=== PATIENT | female | born 1965 | race Two or more races ===

== ENCOUNTER 2022-03-11 10:27 | Inpatient (IN) | payer MEDICARE, OTHER ==
[~2022-03-11] VITALS: Ht 162.6 cm; Wt 94.3 kg
[2022-03-11] MEDS ORDERED: CALC1TAB30 PO (10:54)
[2022-03-11] MEDS ORDERED: ASCO-352 PO (10:54)
[2022-03-11] MEDS ORDERED: APIX5TAB PO (10:54)
[2022-03-11] MEDS ORDERED: ESZO3TAB27 PO (10:54)
[2022-03-11] MEDS ORDERED: EZET10TA16 PO (10:54)
[2022-03-11] MEDS ORDERED: POTA10TA10 PO (10:54)
[2022-03-11] MEDS ORDERED: ATOR40TA PO (10:54)
[2022-03-11] MEDS ORDERED: ESCI5TAB PO (10:54)
[2022-03-11] MEDS ORDERED: OMEG-167 PO (10:54)
[2022-03-11] MEDS ORDERED: POLY17PO4 PO (10:54)
[2022-03-11] MEDS ORDERED: LOSA1TAB36 PO (10:54)
[2022-03-11] MEDS ORDERED: FURO-144 PO (10:54)
[2022-03-11] MEDS ORDERED: AMLO2.5T4 PO (10:54)
[2022-03-11] MEDS ORDERED: OLAN20TA3 PO (10:54)
--- NOTE | 2022-03-11 10:54 | NUR ---
[facility] regular ambulance to ER- on 5149 - needing medical clearance priot to [facility] admission - assigned room 219.1
[2022-03-11] MEDS ORDERED: LEVO75TA7 PO (10:58)
--- NOTE | 2022-03-11 11:01 | NUR ---
AWAKE AND ALERT DINESES SI OR HI ON 5150 FOR GRAVELY DISABLED PT FALLOW COMMAND
[2022-03-11 11:05] LABS: BASOPHILS # (AUTO) 0.1 K/uL (0.0-0.2); BASOPHILS % (AUTO) 0.7 % (0.0-2.0); EOSINOPHILS % (AUTO) 1.7 % (0.0-6.0); HEMATOCRIT 42 % (33-45); HEMOGLOBIN 13.8 g/dL (11.5-14.8); MEAN CORPUSCULAR HGB CONC 33 g/dl (31.0-36.0); MEAN CORPUSCULAR VOLUME 86 fL (82-100); MONOCYTES # (AUTO) 0.4 K/uL (0.1-1.30); MONOCYTES % (AUTO) 5.2 % (2.0-12.0); NEUTROPHILS # (AUTO) 5.1 K/uL (1.8-8.9); NEUTROPHILS % (AUTO) 58.4 % (43.0-81.0); PLATELET COUNT (AUTO) 301 K/uL (150-450); WHITE BLOOD COUNT (AUTO) 8.7 K/uL (4.3-11.0)
--- NOTE | 2022-03-11 11:05 | NUR ---
COVID SWAB SENDED TO LAB AND MRSA SENDED TO LAB PT VODING BUT UNBLE TO GOT URINE SPASMENT
[2022-03-11 11:25] LABS: CARBON DIOXIDE 29 mmol/L (21-32); CHLORIDE 103 mmol/L (98-107); GLUCOSE 108 mg/dL (74-106); POTASSIUM 3.9 mmol/L (3.5-5.1); SODIUM SERUM 138 mmol/L (136-145); UREA NITROGEN, BLOOD 9 mg/dL (7-18)
[2022-03-11 11:31] LABS: ALANINE AMINOTRANSFERASE 17 U/L (12-78); ALBUMIN 3.3 g/dL (3.4-5.0); ALKALINE PHOSPHATASE 101 U/L (46-116); ASPARTATE AMINOTRANSFERASE 13 U/L (15-37); BILIRUBIN,DIRECT 0.2 mg/dL (0.0-0.2); BILIRUBIN,TOTAL 0.8 mg/dL (0.2-1.0); TOTAL PROTEIN, SERUM 7.9 g/dL (6.4-8.2)
[2022-03-11 11:34] LABS: ACETAMINOPHEN < 10 ug/ml (10-30); ALCOHOL, BLOOD < 3 mg/dL (0-0)
--- NOTE | 2022-03-11 11:45 | NUR ---
LALITO FOR LAB RESULT AND ENRIQUE HERRERA
--- NOTE | 2022-03-11 11:57 | NUR ---
TO ROOM 219 PT ON 5150 HAND OFF TO [place] RN BY ( JANET TRAMMELL ) PT VS STABLE NO PAIN A&A
[2022-03-11 12:00] VITALS: BP 126/76
--- NOTE | 2022-03-11 12:20 | NUR ---
GPS/RN RECEIVED PT FROM [facility]( MEDICALLY CLEARED IN [facility] ER) ORIGINALLY FROM HOME. ON 5150 FOR GD. AMBULATORY WITH WALKER. ON FACE TO FACE ASSESSMENT NO SI OR HI REPORTED. ADMITTING ORDERS FROM DR DIXON RECEIVED AND CARRIED OUT. DR FALL MADE AWARE OF ADMISSION. PROPERTY CHECKED FOR CONTRABAND. REFUSED TO SIGN ADMITTING FORMS.
[2022-03-11] MEDS ORDERED: LORAZEPAM 0.5 MG TABLET PO PRN (12:30)
[2022-03-11] MEDS ORDERED: BLOOD SUGAR DIAGNOSTIC 1 EACH STRIP IN ONE (12:30)
[2022-03-11] MEDS ORDERED: ACETAMINOPHEN 325 MG TABLET PO PRN (12:30)
[2022-03-11] MEDS ORDERED: MAG HYDROX/AL HYDROX/SIMETH 30 ML UDC PO PRN (12:30)
[2022-03-11] MEDS ORDERED: MAGNESIUM HYDROXIDE 30 ML UDC PO PRN (12:30)
[2022-03-11] MEDS ORDERED: ZOLPIDEM TARTRATE 5 MG TABLET PO PRN (12:30)
[2022-03-11 16:00] VITALS: BP 121/77
[2022-03-11 20:03] VITALS: BP 120/60
[2022-03-11] MEDS: APIXABAN 5 MG TABLET PO SCH (20:15)
[2022-03-11 20:27] VITALS: BP 120/60
[2022-03-11] MEDS: ATORVASTATIN 40 MG TABLET PO SCH (21:08)
--- NOTE | 2022-03-12 07:32 | NUR ---
RN NOTE- PT ALERT ORIENTED TO PERSON PLACE, MED COMPLIANT W STABLE VS. PO INTAKE FAIR, DENIES SI HI AH VH. NEEDS ATTENDED, BED LOCKED, FREQUENT CHECKS FOR SAFETY, MONITOR AND ASSIST
[2022-03-12 08:00] VITALS: BP 149/86
[2022-03-12 08:01] LABS: CHOLESTEROL 168 mg/dL (<200); HDL CHOLESTEROL 37 mg/dL (40-60); LDL 111 mg/dL (0-99); TRIGLYCERIDES 107 mg/dL (30-150)
[2022-03-12 08:03] LABS: ALBUMIN 2.8 g/dL (3.4-5.0); BILIRUBIN,TOTAL 0.5 mg/dL (0.2-1.0); CALCIUM, SERUM 9.2 mg/dL (8.5-10.1); CREATININE 0.9 mg/dL (0.6-1.3); POTASSIUM 4.1 mmol/L (3.5-5.1); TOTAL PROTEIN, SERUM 6.9 g/dL (6.4-8.2)
[2022-03-12] MEDS: LEVOTHYROXINE SODIUM 75 MCG TABLET PO SCH (08:26)
[2022-03-12] MEDS: EZETIMIBE 10 MG TABLET PO SCH (08:42)
[2022-03-12] MEDS: CALCIUM CARB 250MG /VITAMIN D 1 UDTAB PO SCH (08:42)
[2022-03-12] MEDS: POTASSIUM CHLORIDE 10 MEQ TABLET.SA PO SCH (08:42)
[2022-03-12] MEDS: ASCORBIC ACID 500 MG TABLET PO SCH (08:42)
[2022-03-12] MEDS: LOSARTAN/HCTZ 50-12.5MG/ 1 EA TABLET PO SCH (08:43)
[2022-03-12] MEDS: FUROSEMIDE 40 MG TABLET PO SCH (08:43)
[2022-03-12] MEDS: AMLODIPINE BESYLATE 2.5 MG TABLET PO SCH ×2 (08:43→16:01)
[2022-03-12] MEDS: APIXABAN 5 MG TABLET PO SCH ×2 (08:46→16:02)
[2022-03-12] MEDS: DIVALPROEX SODIUM 250 MG TABLET.DR PO SCH ×2 (10:27→21:03)
[2022-03-12 16:00] VITALS: BP 138/79
[2022-03-12 20:24] VITALS: BP 132/72
[2022-03-12] MEDS: OLANZAPINE 10 MG TABLET PO SCH (21:03)
[2022-03-12] MEDS: ATORVASTATIN 40 MG TABLET PO SCH (21:03)
[2022-03-13 08:00] VITALS: BP 119/69
[2022-03-13] MEDS: CALCIUM CARB 250MG /VITAMIN D 1 UDTAB PO SCH (08:47)
[2022-03-13] MEDS: POTASSIUM CHLORIDE 10 MEQ TABLET.SA PO SCH (08:47)
[2022-03-13] MEDS: LEVOTHYROXINE SODIUM 75 MCG TABLET PO SCH (08:47)
[2022-03-13] MEDS: DIVALPROEX SODIUM 250 MG TABLET.DR PO SCH ×2 (08:47→20:55)
[2022-03-13] MEDS: EZETIMIBE 10 MG TABLET PO SCH (08:47)
[2022-03-13] MEDS: ASCORBIC ACID 500 MG TABLET PO SCH (08:47)
[2022-03-13] MEDS: FUROSEMIDE 40 MG TABLET PO SCH (08:48)
[2022-03-13] MEDS: ESCITALOPRAM OXALATE (10 MG) 10 MG TABLET PO SCH (08:48)
[2022-03-13] MEDS: LOSARTAN/HCTZ 50-12.5MG/ 1 EA TABLET PO SCH (08:48)
[2022-03-13] MEDS: AMLODIPINE BESYLATE 2.5 MG TABLET PO SCH ×2 (08:51→16:19)
[2022-03-13] MEDS: APIXABAN 5 MG TABLET PO SCH ×2 (09:07→16:19)
[2022-03-13 16:00] VITALS: BP_SYST 110; BP_SYST 116; BP_DIAS 63; BP_DIAS 65
--- NOTE | 2022-03-13 17:46 | NUR ---
RN-NOTES PATIENT LYING IN BED AWAKE,ALERT X2 GUARDED ,NOTED WITH DEPRESSED MOOD ENCOURAGE TO VERBALIZE FEELINGS AND CONCERN TO THE STAFF AND ATTEND GROUPS. PATIENT PREFERS TO STAY IN THE ROOM AND REST.NO ACUTE DISTRESS NOTED. COMPLIANT WITH MEDICATIONS.NEEDS MINIMAL ASSIST WITH ADL'S. AMBULATORY WITH WALKER.ABLE TO MAKE NEEDS KNOWN TO THE STAFF. ALL NEEDS ATTENDED AND ANTICIPATED. WILL CONT. MONITORING FOR SAFETY AND BEHAVIOR.WILL ENDORSE TO INCOMING NURSE FOR CONTINUITY OF CARE.
--- NOTE | 2022-03-13 19:30 | NUR ---
GPS RN NOTES RECEIVED PATIENT LYING IN BED ASLEEP. EASY TO AROUSE. A/O X2-3 GUARDED, DISHEVELED, NOTED WITH DEPRESSED MOOD. ENCOURAGED TO VERBALIZE FEELINGS AND CONCERN TO THE STAFF. NOT IN APPARENT DISTRESS. DENIES PAIN AT THIS TIME. AMBULATORY WITH WALKER. WILL CONT. MONITORING FOR SAFETY AND BEHAVIOR.
[2022-03-13 20:00] VITALS: BP 106/72
--- NOTE | 2022-03-13 21:00 | NUR ---
GPS RN NOTES ONLY 10 TABS OF ZYPREXA 10 MG AVAILABLE IN OMNICELL. TOOK 1 TAB, 9 TABS LEFT.
[2022-03-13] MEDS: OLANZAPINE 10 MG TABLET PO SCH (21:04)
[2022-03-13] MEDS: ATORVASTATIN 40 MG TABLET PO SCH (21:04)
--- NOTE | 2022-03-14 06:28 | NUR ---
GPS RN NOTES PATIENT LYING IN BED WITH EYES CLOSED. A/O X2 CALM, DISHEVELED, WITHDRAWN, DEPRESSED MOOD. NO C/O PAIN AT THIS TIME. NO S/S OF DISTRESS NOTED. BREATHING EVEN AND NON-LABORED ON ROOM AIR. DENIES SI/HI AT THIS TIME. ALL NEEDS ANTICIPATED. AMBULATORY WITH STEADY GAIT. SAFETY PRECAUTIONS IN PLACE: BED LOW AND LOCKED, SIDE RAILS UP X2. WILL CONT. MONITORING FOR SAFETY AND BEHAVIOR. WILL ENDORSE TO AM NURSE FOR CONTINUITY OF CARE.
[2022-03-14 06:53] VITALS: BP 106/72
[2022-03-14 08:00] VITALS: BP 117/68
[2022-03-14] MEDS: POTASSIUM CHLORIDE 10 MEQ TABLET.SA PO SCH (09:28)
[2022-03-14] MEDS: LOSARTAN/HCTZ 50-12.5MG/ 1 EA TABLET PO SCH (09:28)
[2022-03-14] MEDS: CALCIUM CARB 250MG /VITAMIN D 1 UDTAB PO SCH (09:28)
[2022-03-14] MEDS: EZETIMIBE 10 MG TABLET PO SCH (09:28)
[2022-03-14] MEDS: ESCITALOPRAM OXALATE (10 MG) 10 MG TABLET PO SCH (09:28)
[2022-03-14] MEDS: ASCORBIC ACID 500 MG TABLET PO SCH (09:29)
[2022-03-14] MEDS: FUROSEMIDE 40 MG TABLET PO SCH (09:29)
[2022-03-14] MEDS: LEVOTHYROXINE SODIUM 75 MCG TABLET PO SCH (09:29)
[2022-03-14] MEDS: DIVALPROEX SODIUM 250 MG TABLET.DR PO SCH ×2 (09:29→21:07)
[2022-03-14] MEDS: AMLODIPINE BESYLATE 2.5 MG TABLET PO SCH ×2 (09:30→16:45)
[2022-03-14] MEDS: APIXABAN 5 MG TABLET PO SCH ×2 (09:39→16:43)
--- NOTE | 2022-03-14 10:14 | NUR ---
CRISTHIAN Clinical Note: Pt placed on a 5150 hold for GD. Pt had stopped her medications at home and was depressed. Pt was not eating at home. Pt currently resides at [address] , [place] [address]; ([phone]). Pt reported that she lives with two roommates. Pt would want to return back home upon discharge.
--- NOTE | 2022-03-14 10:14 | NUR ---
CRISTHIAN Initial Discharge Plan: Pt currently resides at [address] [place], [place] [address]; ([phone]). Pt reported that she lives with two roommates. Pt would want to return back home upon discharge. CRISTHIAN will work with the MD, family, and treatment team to help coordinate appropriate discharge.
--- NOTE | 2022-03-14 10:20 | NUR ---
CRISTHIAN Family Contact: CRISTHIAN contacted pt's mother Jeana ([phone]) to discuss treatment and discharge plan. She reported that she is pt's payee. Pt has not been taking her medications at home. Mother shared she is bipolar and has been going on for many years. She reported that pt lives with roommates Smith and Farrah who take care of pt. Mother stated pt can return back home when stable. Addendum: 03/14/22 at 1031 by CRISTHIAN PADGETT Patient's mother is Michaela.
[2022-03-14 16:00] VITALS: BP 100/58
[2022-03-14 20:00] VITALS: BP 119/64
[2022-03-14] MEDS: OLANZAPINE 10 MG TABLET PO SCH (21:23)
[2022-03-14] MEDS: ATORVASTATIN 40 MG TABLET PO SCH (21:23)
[2022-03-15 08:00] VITALS: BP 128/73
[2022-03-15] MEDS: ASCORBIC ACID 500 MG TABLET PO SCH (08:21)
[2022-03-15] MEDS: AMLODIPINE BESYLATE 2.5 MG TABLET PO SCH ×2 (08:21→17:00)
[2022-03-15] MEDS: CALCIUM CARB 250MG /VITAMIN D 1 UDTAB PO SCH (08:21)
[2022-03-15] MEDS: LOSARTAN/HCTZ 50-12.5MG/ 1 EA TABLET PO SCH (08:21)
[2022-03-15] MEDS: EZETIMIBE 10 MG TABLET PO SCH (08:21)
[2022-03-15] MEDS: LEVOTHYROXINE SODIUM 75 MCG TABLET PO SCH (08:21)
[2022-03-15] MEDS: ESCITALOPRAM OXALATE (10 MG) 10 MG TABLET PO SCH (08:22)
[2022-03-15] MEDS: DIVALPROEX SODIUM 250 MG TABLET.DR PO SCH ×2 (08:22→20:55)
[2022-03-15] MEDS: POTASSIUM CHLORIDE 10 MEQ TABLET.SA PO SCH (08:22)
[2022-03-15] MEDS: FUROSEMIDE 40 MG TABLET PO SCH (08:22)
[2022-03-15] MEDS: APIXABAN 5 MG TABLET PO SCH ×2 (08:24→17:25)
[2022-03-15 16:00] VITALS: BP 103/53
--- NOTE | 2022-03-15 19:30 | NUR ---
GPS RN NOTES RECEIVED LYING BED,A/O X2,NO SOB,CALM AND QUIET ON BED,APPEARS DEPRESSED.FALL PRECAUTION OBSERVED,BED ON LOWEST POSITION AND LOCKED,BED ALARM.WILL CONTINUE TO MONITOR BEHAVIOR.
--- NOTE | 2022-03-15 19:35 | NUR ---
GPS VALERI NOTES RECEIVED IN HER ROOM,SITTING ON EDGE OF BED,A/O X3,ABLE TO COMMUNICATE,VERBALIZE HER NEEDS,CALM AND MED COMPLIANT PER REPORT,WILL CONTINUE TO MONITOR BEHAVIOR. Addendum: 03/15/22 at 2108 by SHAHIDA ZHANG RN NOTES NOT FOR THIS PATIENT
[2022-03-15 20:00] VITALS: BP_SYST 102; BP_DIAS 51; BP_DIAS 57
[2022-03-15] MEDS: OLANZAPINE 10 MG TABLET PO SCH (21:49)
[2022-03-15] MEDS: ATORVASTATIN 40 MG TABLET PO SCH (21:49)
--- NOTE | 2022-03-16 06:43 | NUR ---
GPS RN NOTES SLEPT WELL AT NIGHT,MED COMPLIANT
[2022-03-16 08:00] VITALS: BP 131/63
[2022-03-16] MEDS: FUROSEMIDE 40 MG TABLET PO SCH (08:12)
[2022-03-16] MEDS: ASCORBIC ACID 500 MG TABLET PO SCH (08:12)
[2022-03-16] MEDS: ESCITALOPRAM OXALATE (10 MG) 10 MG TABLET PO SCH (08:13)
[2022-03-16] MEDS: AMLODIPINE BESYLATE 2.5 MG TABLET PO SCH ×2 (08:13→16:35)
[2022-03-16] MEDS: DIVALPROEX SODIUM 250 MG TABLET.DR PO SCH ×2 (08:13→21:19)
[2022-03-16] MEDS: CALCIUM CARB 250MG /VITAMIN D 1 UDTAB PO SCH (08:13)
[2022-03-16] MEDS: LEVOTHYROXINE SODIUM 75 MCG TABLET PO SCH (08:13)
[2022-03-16] MEDS: POTASSIUM CHLORIDE 10 MEQ TABLET.SA PO SCH (08:14)
[2022-03-16] MEDS: LOSARTAN/HCTZ 50-12.5MG/ 1 EA TABLET PO SCH (08:14)
[2022-03-16] MEDS: EZETIMIBE 10 MG TABLET PO SCH (08:14)
[2022-03-16] MEDS: APIXABAN 5 MG TABLET PO SCH ×2 (08:14→16:34)
--- NOTE | 2022-03-16 09:40 | NUR ---
RN Notes: Received pt. awake in bed, responsive to staffs. Ate 100% for breakfast, compliant on meds. Pt. isolates in room, encouraged to attend group activity and motivated to take shower. Needs attended, no distress and no agitation noted. Will continue to monitor for safety.
--- NOTE | 2022-03-16 09:45 | NUR ---
Court Notification: CRISTHIAN contacted pt's mother Jeana ([phone]) and left a voicemail of pt's [id number] hearing is today.
--- NOTE | 2022-03-16 09:45 | NUR ---
Court Hearing: Patient's court hearing for [id number] was today and it was upheld for GD.
[2022-03-16 16:00] VITALS: BP 105/58
[2022-03-16 20:00] VITALS: BP 117/58
[2022-03-16 20:04] VITALS: BP 117/58
[2022-03-16] MEDS: ATORVASTATIN 40 MG TABLET PO SCH (21:37)
[2022-03-16] MEDS: OLANZAPINE 10 MG TABLET PO SCH (21:51)
[2022-03-17 08:00] VITALS: BP 133/66
[2022-03-17] MEDS: DIVALPROEX SODIUM 250 MG TABLET.DR PO SCH ×2 (08:31→21:28)
[2022-03-17] MEDS: LEVOTHYROXINE SODIUM 75 MCG TABLET PO SCH (08:32)
[2022-03-17] MEDS: EZETIMIBE 10 MG TABLET PO SCH (08:32)
[2022-03-17] MEDS: ESCITALOPRAM OXALATE (10 MG) 10 MG TABLET PO SCH (08:32)
[2022-03-17] MEDS: FUROSEMIDE 40 MG TABLET PO SCH (08:32)
[2022-03-17] MEDS: POTASSIUM CHLORIDE 10 MEQ TABLET.SA PO SCH (08:32)
[2022-03-17] MEDS: ASCORBIC ACID 500 MG TABLET PO SCH (08:33)
[2022-03-17] MEDS: APIXABAN 5 MG TABLET PO SCH ×2 (08:33→16:47)
[2022-03-17] MEDS: CALCIUM CARB 250MG /VITAMIN D 1 UDTAB PO SCH (08:33)
[2022-03-17] MEDS: AMLODIPINE BESYLATE 2.5 MG TABLET PO SCH ×2 (08:34→16:45)
[2022-03-17] MEDS: LOSARTAN/HCTZ 50-12.5MG/ 1 EA TABLET PO SCH (08:34)
--- NOTE | 2022-03-17 08:38 | NUR ---
CRISTHIAN Note: SW offered pt placements and pt stated she wants to go back home to where she lives.
--- NOTE | 2022-03-17 08:39 | NUR ---
CRISTHIAN Family Contact: SW received a call from pt's mother Michaela ([phone]) who stated that she had found a board and care in [place] but spoke to them and they stated they will not accept pt because they will not come to evaluate pt at [facility]. Mother stated she would want pt at a facility. However, SW explained that this adjusto writer operator has offered pt facility options and she refuses to go.
--- NOTE | 2022-03-17 09:00 | NUR ---
GPS/RN RECEIVED PT RESTING IN BED NO S/S DISTRESS NOTED A/O X2-3 GUARDED,ISOLATIVE ,DEPRESSED ENCOURAGED TO VERBALIZE FEELINGS AND CONCERNS TO THE STAFF. DAILY MEDS COMPLIANT. DENIES PAIN AT THIS TIME. AMBULATORY WITH WALKER. WILL CONTINUE MONITORING Q15MIN FOR SAFETY AND BEHAVIOR.
[2022-03-17 16:00] VITALS: BP 108/58
[2022-03-17] MEDS: ATORVASTATIN 40 MG TABLET PO SCH (21:43)
[2022-03-17] MEDS: OLANZAPINE 10 MG TABLET PO SCH (22:02)
[2022-03-18] MEDS: LEVOTHYROXINE SODIUM 75 MCG TABLET PO SCH (06:41)
[2022-03-18 08:00] VITALS: BP 122/69
[2022-03-18] MEDS: ESCITALOPRAM OXALATE (10 MG) 10 MG TABLET PO SCH (08:16)
[2022-03-18] MEDS: CALCIUM CARB 250MG /VITAMIN D 1 UDTAB PO SCH (08:16)
[2022-03-18] MEDS: ASCORBIC ACID 500 MG TABLET PO SCH (08:16)
[2022-03-18] MEDS: DIVALPROEX SODIUM 250 MG TABLET.DR PO SCH ×2 (08:16→21:07)
[2022-03-18] MEDS: EZETIMIBE 10 MG TABLET PO SCH (08:16)
[2022-03-18] MEDS: FUROSEMIDE 40 MG TABLET PO SCH (08:16)
[2022-03-18] MEDS: POTASSIUM CHLORIDE 10 MEQ TABLET.SA PO SCH (08:16)
[2022-03-18] MEDS: LOSARTAN/HCTZ 50-12.5MG/ 1 EA TABLET PO SCH (08:17)
[2022-03-18] MEDS: AMLODIPINE BESYLATE 2.5 MG TABLET PO SCH ×2 (08:17→17:00)
[2022-03-18] MEDS: APIXABAN 5 MG TABLET PO SCH ×2 (08:21→17:15)
[2022-03-18 16:00] VITALS: BP 100/60
[2022-03-18 19:52] VITALS: BP 143/64
[2022-03-18] MEDS: ATORVASTATIN 40 MG TABLET PO SCH (21:38)
[2022-03-18] MEDS: OLANZAPINE 10 MG TABLET PO SCH (21:38)
--- NOTE | 2022-03-19 07:02 | NUR ---
PATIENT SLEPT WELL AT NIGHT, MED COMPLAINT, COOPERATIVE, CALM BUT GUARDED, ISOLATIVE. WILL ENDORSE TO AM RN.
--- NOTE | 2022-03-19 09:00 | NUR ---
GPS/RN RECEIVED PT RESTING IN BED NO S/S DISTRESS NOTED A/O X2-3 GUARDED, ISOLATIVE, DEPRESSED ENCOURAGED TO VERBALIZE FEELINGS AND CONCERNS TO THE STAFF. DAILY MEDS COMPLIANT WITH ENCOURAGEMENT. DENIES PAIN AT THIS TIME. AMBULATORY WITH WALKER. WILL CONTINUE MONITORING Q15MIN FOR SAFETY AND BEHAVIOR.
[2022-03-19] MEDS: ASCORBIC ACID 500 MG TABLET PO SCH (09:05)
[2022-03-19] MEDS: POTASSIUM CHLORIDE 10 MEQ TABLET.SA PO SCH (09:06)
[2022-03-19] MEDS: EZETIMIBE 10 MG TABLET PO SCH (09:07)
[2022-03-19] MEDS: APIXABAN 5 MG TABLET PO SCH ×2 (09:07→16:55)
[2022-03-19] MEDS: FUROSEMIDE 40 MG TABLET PO SCH (09:07)
[2022-03-19] MEDS: LEVOTHYROXINE SODIUM 75 MCG TABLET PO SCH (09:07)
[2022-03-19] MEDS: DIVALPROEX SODIUM 250 MG TABLET.DR PO SCH ×2 (09:07→21:06)
[2022-03-19] MEDS: AMLODIPINE BESYLATE 2.5 MG TABLET PO SCH ×2 (09:08→16:53)
[2022-03-19] MEDS: LOSARTAN/HCTZ 50-12.5MG/ 1 EA TABLET PO SCH (09:08)
[2022-03-19] MEDS: CALCIUM CARB 250MG /VITAMIN D 1 UDTAB PO SCH (09:08)
[2022-03-19] MEDS: ESCITALOPRAM OXALATE (10 MG) 10 MG TABLET PO SCH (09:09)
[2022-03-19 20:00] VITALS: BP 120/63
[2022-03-19] MEDS: OLANZAPINE 10 MG TABLET PO SCH (21:56)
[2022-03-19] MEDS: ATORVASTATIN 40 MG TABLET PO SCH (21:56)
--- NOTE | 2022-03-20 06:48 | NUR ---
RN CLOSING NOTE PATIENT SLEEPING IN BED, ALERT/ORIENTED X 2. PATIENT QUIET, ISOLATIVE, WITHDRAWN AND HAS SLOW SPEECH. PATIENT MED COMPLIANT, HOWEVER REQUIRED A LOT OF ENCOURAGEMENT TO TAKE MEDS. PATIENT SLEPT WELL THROUGH THE NIGHT, NO SIGNIFICANT CHANGES, PATIENT NEEDS MET. PATIENT AMBULATORY TO BATHROOM WITH WALKER. SAFETY MEASURES MAINTAINED WITH Q15 MIN CHECKS. WILL ENDORSE TO DAY SHIFT NURSE FOR CONTINUITY OF CARE
[2022-03-20] MEDS: LEVOTHYROXINE SODIUM 75 MCG TABLET PO SCH (07:47)
[2022-03-20 08:00] VITALS: BP 147/71
[2022-03-20] MEDS: DIVALPROEX SODIUM 250 MG TABLET.DR PO SCH ×2 (08:02→21:11)
[2022-03-20] MEDS: POTASSIUM CHLORIDE 10 MEQ TABLET.SA PO SCH (08:02)
[2022-03-20] MEDS: CALCIUM CARB 250MG /VITAMIN D 1 UDTAB PO SCH (08:02)
[2022-03-20] MEDS: ASCORBIC ACID 500 MG TABLET PO SCH (08:02)
[2022-03-20] MEDS: ESCITALOPRAM OXALATE (10 MG) 10 MG TABLET PO SCH (08:03)
[2022-03-20] MEDS: EZETIMIBE 10 MG TABLET PO SCH (08:03)
[2022-03-20] MEDS: LOSARTAN/HCTZ 50-12.5MG/ 1 EA TABLET PO SCH (08:03)
[2022-03-20] MEDS: FUROSEMIDE 40 MG TABLET PO SCH (08:03)
[2022-03-20] MEDS: AMLODIPINE BESYLATE 2.5 MG TABLET PO SCH ×2 (08:03→17:00)
[2022-03-20] MEDS: APIXABAN 5 MG TABLET PO SCH ×2 (08:08→17:07)
[2022-03-20 16:00] VITALS: BP 108/59
--- NOTE | 2022-03-20 18:43 | NUR ---
RN-NOTES PATIENT LYING IN BED AWAKE,ALERT X2 GUARDED ,NOTED WITH DEPRESSED MOOD ENCOURAGE TO VERBALIZE FEELINGS AND CONCERN TO THE STAFF AND ATTEND GROUPS. PATIENT ATTENDED GROUPS FOR SHORT TIME AND BACK TO HER ROOM . NO ACUTE DISTRESS NOTED. COMPLIANT WITH MEDICATIONS.NEEDS MINIMAL ASSIST WITH ADL'S. AMBULATORY WITH WALKER.ABLE TO MAKE NEEDS KNOWN TO THE STAFF. ALL NEEDS ATTENDED AND ANTICIPATED. WILL CONT. MONITORING FOR SAFETY AND BEHAVIOR.WILL ENDORSE TO INCOMING NURSE FOR CONTINUITY OF CARE.
[2022-03-20 19:55] VITALS: BP 101/52
[2022-03-20] MEDS: ATORVASTATIN 40 MG TABLET PO SCH (21:11)
[2022-03-20] MEDS: OLANZAPINE 10 MG TABLET PO SCH (21:11)
[2022-03-21] MEDS: LEVOTHYROXINE SODIUM 75 MCG TABLET PO SCH (07:47)
[2022-03-21 08:00] VITALS: BP 104/64
[2022-03-21] MEDS: ASCORBIC ACID 500 MG TABLET PO SCH (08:15)
[2022-03-21] MEDS: ESCITALOPRAM OXALATE (10 MG) 10 MG TABLET PO SCH (08:15)
[2022-03-21] MEDS: CALCIUM CARB 250MG /VITAMIN D 1 UDTAB PO SCH (08:16)
[2022-03-21] MEDS: EZETIMIBE 10 MG TABLET PO SCH (08:16)
[2022-03-21] MEDS: DIVALPROEX SODIUM 250 MG TABLET.DR PO SCH ×2 (08:16→21:17)
[2022-03-21] MEDS: AMLODIPINE BESYLATE 2.5 MG TABLET PO SCH (08:17)
[2022-03-21] MEDS: APIXABAN 5 MG TABLET PO SCH ×2 (08:22→17:07)
[2022-03-21] MEDS: FUROSEMIDE 40 MG TABLET PO SCH (09:00)
[2022-03-21] MEDS: LOSARTAN/HCTZ 50-12.5MG/ 1 EA TABLET PO SCH (09:00)
[2022-03-21] MEDS: POTASSIUM CHLORIDE 10 MEQ TABLET.SA PO SCH (09:00)
--- NOTE | 2022-03-21 10:29 | NUR ---
RN-CO: Received patient awake, with bright affect. She is calm and cooperative to care. She took her medications and ate her breakfast. She denied auditory and visual hallucinations and denied suicidal and homicidal ideations. I will continue to monitor.
--- NOTE | 2022-03-21 11:22 | NUR ---
RN-CO: MS WRAY MADE AWARE THAT INA CHUA'S BLOOD PRESSURE TRNEDING LOW. SHE STATED SHE WILL REVIEW ANTIHYPERTENSIVES.
[2022-03-21 16:00] VITALS: BP 120/74
--- NOTE | 2022-03-21 19:15 | NUR ---
GPS RN NOTES RECEIVED PATIENT IN BED RESTING COMFORTABLY. ALERT AND ORIENTED X3. NO S/SX OF ACUTE DISTRESS NOTED. PATIENT IS CALM AND COOPERATIVE TO CARE, ISOLATIVE, MED COMPLIANT. NO VERBALIZATION OF THOUGHTS AND FEELINGS. SAFETY PRECAUTIONS IN PLACE. WILL CONTINUE TO MONITOR Q15 MIN ROUNDS FOR SAFETY AND BEHAVIOR.
[2022-03-21 19:30] VITALS: BP 122/74
[2022-03-21] MEDS: OLANZAPINE 10 MG TABLET PO SCH (21:17)
[2022-03-21] MEDS: ATORVASTATIN 40 MG TABLET PO SCH (21:17)
--- NOTE | 2022-03-22 07:48 | NUR ---
SW Discharge Note: Patient will return back home located at [address], [place] [address]; ([phone]). Patients friend Farrah Mcgrath will supervisor opening and picking pt at 12PM. Patients mother Michaela ([phone]) is aware and agreeable of discharge. Patient is alert and oriented x3. Patient denies visual/auditory hallucinations. Patient denies suicidal or homicidal ideation. Patient is happy to be going back home. Patient will follow up with (Glass Finisher) Dr. Arreaga located at [address], [place] [address]; ([phone]) and (Psychiatrist) Dr. Valdes located at [address] [place] [address]; ([phone]). Patient presents with euthymic mood and congruent affect.
[2022-03-22] MEDS: LEVOTHYROXINE SODIUM 75 MCG TABLET PO SCH (07:58)
[2022-03-22 08:00] VITALS: BP 132/71
[2022-03-22] MEDS: ASCORBIC ACID 500 MG TABLET PO SCH (08:19)
[2022-03-22] MEDS: ESCITALOPRAM OXALATE (10 MG) 10 MG TABLET PO SCH (08:19)
[2022-03-22] MEDS: CALCIUM CARB 250MG /VITAMIN D 1 UDTAB PO SCH (08:19)
[2022-03-22] MEDS: DIVALPROEX SODIUM 250 MG TABLET.DR PO SCH (08:19)
[2022-03-22] MEDS: EZETIMIBE 10 MG TABLET PO SCH (08:20)
[2022-03-22] MEDS: POTASSIUM CHLORIDE 10 MEQ TABLET.SA PO SCH (08:20)
[2022-03-22] MEDS: FUROSEMIDE 40 MG TABLET PO SCH (08:20)
[2022-03-22 08:21] VITALS: BP 132/71
[2022-03-22] MEDS: LOSARTAN/HCTZ 50-12.5MG/ 1 EA TABLET PO SCH (08:21)
[2022-03-22] MEDS: APIXABAN 5 MG TABLET PO SCH (08:23)
--- NOTE | 2022-03-22 09:10 | NUR ---
RN-CO: Patient received awake, alert x 4, able to make needs known. She denied pain and discomforts. No acute distress noted. She denied suicidal and homicidal ideation. She denied auditory and visual hallucinations. Her affect is bright and excited about her discharge. All discharge papers and instructions including follow up were discussed to her and she verbalized understanding. She was medically cleared by Pualine Jade NP and will order the prescriptions in [facility]. All belongings will be given back to the patient.
--- NOTE | 2022-03-22 10:30 | NUR ---
RN-CO: Patient was seen and examined by Dr Soni with orders to discontinue hold and discharge patient home with friends, noted and carried out. Prescription were discussed to the patient and she verbalized understanding.
--- NOTE | 2022-03-22 12:43 | NUR ---
RN-CO: Patient was picked up by mother Johanna . Escorted by GPS staff in the lobby. Vakuables were given to mother and patient .
== END 2022-03-22 12:45 | disposition home or self-care (01) | DRG 885 ==
LOC: ER 10:53 → GPS 11:49
PROVIDERS: ADMIT Psychiatry & Neurology Psychiatry; ATTEND Nurse Practitioner Acute Care
DX: F25.1 Schizoaffective disorder, depressive type (principal); E44.1 Mild protein-calorie malnutrition; D68.59 Other primary thrombophilia; F03.91 Unspecified dementia, unspecified severity, with behavioral disturbance; Z86.718 Personal history of other venous thrombosis and embolism; Z79.01 Long term (current) use of anticoagulants; Z91.19 Patient's noncompliance with other medical treatment and regimen; Z91.030 Bee allergy status; Z79.899 Other long term (current) drug therapy; I10 Essential (primary) hypertension; E78.5 Hyperlipidemia, unspecified; E88.09 Other disorders of plasma-protein metabolism, not elsewhere classified; E66.9 Obesity, unspecified; Z68.35 Body mass index [BMI] 35.0-35.9, adult; F29 Unspecified psychosis not due to a substance or known physiological condition
CPT/HCPCS: 36415; 80048-TC; 80053-TC; 80061-TC; 80076-TC; 80164-TC; 84439-TC; 84443-TC; 85025-TC; 87081-TC; 97116-TC; 97530-TC; C9803; G0480